=== PATIENT | male | born 1990 | race Caucasian/White ===

== ENCOUNTER 2017-11-19 11:19 | Emergency (ER) | payer OTHER ==
[2017-11-19] MEDS ORDERED: KETOROLAC TROMETHAMINE 60 MG/2 ML SDV IV ONE (14:44)
--- NOTE | 2017-11-19 14:56 | ER Document Report ---
ED Neck/Back Problem - General Chief Complaint: Back Pain Stated Complaint: BACK PAIN Time Seen by Provider: 11/19/17 14:24 Mode of Arrival: Ambulatory Information source: Patient TRAVEL OUTSIDE OF THE [place] IN LAST 30 DAYS: No - HPI Patient complains to provider of: Pain, Upper back, Lower back Onset: Other - 4-5 days Timing: Constant Quality of pain: Achy Severity: Moderate Recent injury: No Notes: Patient arrives with multiple complaints. The patient has a history of chronic back pain and has a spinal stimulator in place. States that it is currently turned off due to fractured wires. He states that for the last 4-5 days he has had pain in his upper back that radiates around to the left lower abdomen and down into the left groin. He complains of left testicular pain as well. He states that the testicle is somewhat sore to the touch. He denies any swelling or redness or rash in this area. He denies any dysuria or hematuria. He denies any penile discharge. He denies any nausea vomiting. He states that he has had some diarrhea for the last few days and reports that he had some bright red blood on the toilet paper with his last bowel movement. He denies any active rectal bleeding currently. He is not on any blood thinning medications. He denies any injuries. He denies any bowel or bladder dysfunction. He denies any unilateral numbness tingling or weakness. He denies fevers. No chest pain or shortness of breath. He denies any other complaints at this time. Past Medical History - Social History Smoking Status: Unknown if Ever Smoked Family History: Reviewed & Not Pertinent - Immunizations Hx Diphtheria, Pertussis, Tetanus Vaccination: Yes Review of Systems - Review of Systems -: Yes All other systems reviewed and negative Physical Exam - Notes Notes: GENERAL: alert, cooperative, nontoxic, no distress. HEAD: normocephalic, atraumatic EYES: conjunctiva pink without discharge, no external redness or swelling. EARS: no external swelling, no external redness NOSE: atraumatic, no external swelling MOUTH/THROAT: mucous membranes moist and pink, posterior pharynx without erythema, swelling, exudate. No trismus or drooling. NECK: soft, supple, full range of motion, no meningismus. CHEST: no distress, lungs clear and equal throughout. No wheezing, rales, rhonchi. CARDIAC: regular rate and rhythm, no murmur, normal capillary refill, normal pulses. No peripheral edema noted. ABDOMEN: soft, tenderness to palpation of the left lower quadrant with no rebound tenderness or guarding. No mass. No pulsatile mass. BACK: No CVA tenderness. Tenderness along the left paraspinal muscles. No rash. No midline tenderness step-offs or crepitus. EXTREMITIES: full range of motion of all extremities. No redness, no swelling. NEURO: alert and oriented A&O x 3, no focal deficits, full range of motion of all extremities. 5 out of 5 flexion and extension of the lower extremities bilaterally. Patellar and Achilles deep tendon reflexes are +2 bilaterally. Normal sensation with no saddle anesthesia. Patient can dorsiflex the great toes bilaterally. PYSCH: appropriate mood, affect. Patient is cooperative. SKIN: pink, warm, dry, no rash. RECTAL: No external lesions, normal rectal tone. No gross blood noted. No tenderness. Prostate unremarkable. : Circumcised penis with no penile discharge. No rashes. Left testicle with mild tenderness to palpation. No redness, swelling, crepitus to the scrotum. No masses within the testicle. Epididymis is unremarkable. No palpable hernia. Right testicle is normal. Course - Re-evaluation Re-evalutation: 11/19/17 17:52 Patient is nontoxic appearing with stable vitals. The patient arrives with left back pain radiating into the left abdomen and down the left testicle. Testicular exam is unremarkable. No sign of torsion or Rabia's gangrene. CT of the abdomen and pelvis shows no acute abnormalities. His lab work is unremarkable aside from a slightly elevated lipase of 400. He has no upper abdominal tenderness and no signs of pancreatitis on his CT. Urinalysis shows no signs of infection. GC chlamydia cultures are currently pending. He has no penile discharge. He was treated with Rocephin and Zithromax in the emergency department. Patient had an ultrasound of the scrotum which showed 3 nodules within the left testicle concerning for possible metastatic disease. The patient was informed of these results and was instructed to follow-up with the urologist at the next available appointment for further evaluation. Patient verbalized understanding of his findings. Patient has no sign of cauda equina, epidural abscess/bleed. He has no saddle anesthesia, no bowel or bladder dysfunction with a nonfocal neurological exam. The patient is noted to have elevated blood pressure during today's emergency department visit. The patient was informed of this finding. The patient was instructed that this may be related to pre-hypertension and requires further evaluation with a primary care provider. The patient has no hypertensive symptoms at this time. The patient's emergency department workup and current diagnosis were explained to the patient and or family. Follow-up instructions were provided. Medications if prescribed were discussed. Instructions for when to return to the emergency department including specific worrisome symptoms were discussed with the patient and/or family. - Laboratory Result Diagrams: 11/19/17 15:12 11/19/17 15:12 Laboratory results interpreted by me: 11/19/17 11/19/17 15:12 15:12 WBC 10.8 H Eosinophils % 6.2 H Absolute Eosinophils 0.7 H Calcium 10.3 H Lipase 413.5 H - Diagnostic Test Radiology reviewed: Image reviewed, Reports reviewed - CT abdomen pelvis without acute findings. Scrotal ultrasound showing 3 nodular lesions within the left testicle concerning for metastatic disease. Discharge - Discharge Clinical Impression: Testicular mass Abdominal pain Qualifiers: Abdominal location: left lower quadrant Qualified Code(s): R10.32 - Left lower quadrant pain Condition: Stable Disposition: HOME, SELF-CARE Instructions: Low Back Pain ([facility]), Abdominal Pain ([facility]), Testicular Pain ([facility]) Additional Instructions: Follow-up with urology at the next available appointment. Follow-up sooner for increasing pain, fever, persistent vomiting, or for any further concerns. Your blood pressure was elevated during today's visit. Have this rechecked with your doctor. Forms: Elevated Blood Pressure, Smoking Cessation Education Referrals: RAINA SAUNDERS MD [ACTIVE STAFF] - Follow up as needed FOREST MARY MD [MACHINE SHORTHAND TEACHER] - Follow up as needed PHYLICIA MOORE MD [EMERITUS] - Follow up as needed ZACHARY WELLS MD [NO LOCAL MD] - Follow up as needed AMADA LANGSTON MD [MACHINE SHORTHAND TEACHER] - Follow up as needed TJ BOSTON DO [ASSOCIATE] - Follow up as needed JEANINE RAMIREZ MD [NO LOCAL MD] - Follow up as needed
[2017-11-19 15:27] LABS: APPEARANCE,URINE CLOUDY; BILIRUBIN,URINE NEGATIVE (NEGATIVE); COLOR,URINE YELLOW; GLUCOSE, URINE NEGATIVE (NEGATIVE); KETONES,URINE NEGATIVE (NEGATIVE); LEUKOCYTE ESTERASE,URINE NEGATIVE (NEGATIVE); NITRITE,URINE NEGATIVE (NEGATIVE); PROTEIN,URINE NEGATIVE (NEGATIVE); URINE SPECIFIC GRAVITY 1.016; UROBILINOGEN,URINE NEGATIVE mg/dL (<2.0)
[2017-11-19 15:35] LABS: ABSOLUTE BASOPHILS # (AUTO) 0.1 10^3/uL (0.0-0.2); ABSOLUTE EOSINOPHILS # (AUTO) 0.7 10^3/uL (0.0-0.6); ABSOLUTE LYMPHOCYTES (AUTO) 2.9 10^3/uL (0.5-4.7); ABSOLUTE MONOCYTES (AUTO) 0.9 10^3/uL (0.1-1.4); ABSOLUTE NEUT (AUTO) 6.3 10^3/uL (1.7-8.2); BASOPHILS % (AUTO) 0.9 % (0-2); EOSINOPHILS % (AUTO) 6.2 % (0-6); HEMATOCRIT 45.5 % (37.9-51.0); HEMOGLOBIN 15.5 g/dL (13.5-17.0); LYMPHOCYTES % (AUTO) 26.3 % (13-45); MEAN CORPUSCULAR HEMOGLOBIN 29.5 pg (27.0-33.4); MEAN CORPUSCULAR VOLUME 87 fl (80-97); MONOCYTES % (AUTO) 8.7 % (3-13); PLATELET COUNT 255 10^3/uL (150-450); RED BLOOD COUNT 5.24 10^6/uL (4.35-5.55); RED CELL DISTRIBUTION WIDTH 13.3 % (11.5-14.0); SEGMENTED NEUTROPHILS % (AUTO) 57.9 % (42-78); TOTAL CELLS COUNTED % (AUTO) 100 %; WHITE BLOOD COUNT 10.8 10^3/uL (4.0-10.5)
[2017-11-19 15:45] LABS: ALANINE AMINOTRANSFERASE 27 U/L (21-72); ALBUMIN 4.4 g/dL (3.5-5.0); ALKALINE PHOSPHATASE 66 U/L (38-126); ANION GAP 11 (5-19); ASPARTATE AMINO TRANSFERASE 17 U/L (17-59); BILIRUBIN,DIRECT 0.2 mg/dL (0.0-0.4); BILIRUBIN,TOTAL 0.3 mg/dL (0.2-1.3); BLOOD UREA NITROGEN 9 mg/dL (7-20); CALCIUM 10.3 mg/dL (8.4-10.2); CARBON DIOXIDE 27 mmol/L (22-30); CHLORIDE 104 mmol/L (98-107); GLUCOSE 104 mg/dL (75-110); LIPASE 413.5 U/L (23-300); POTASSIUM 3.8 mmol/L (3.6-5.0); SODIUM 141.7 mmol/L (137-145); TOTAL PROTEIN 6.7 g/dL (6.3-8.2)
--- NOTE | 2017-11-19 16:32 | RADIOLOGY REPORT (SQ) ---
EXAM DESCRIPTION: CT ABD/PELVIS WITH IV ONLY COMPLETED DATE/TIME: 11/19/2017 4:07 pm REASON FOR STUDY: left back/abdo pain, blood in stool COMPARISON: None. TECHNIQUE: CT scan of the abdomen and pelvis performed using helical scanning technique with dynamic intravenous contrast injection. No oral contrast. Images reviewed with lung, soft tissue, and bone windows. Reconstructed coronal and sagittal MPR imag es reviewed. Delayed images for evaluation of the urinary system also acquired. All images stored on PACS. All CT scanners at this facility use dose modulation, iterative reconstruction, and/or weight based d osing when appropriate to reduce radiation dose to as low as reasonably achievable (ALARA). [facility]: Dose Right [facility]: CareDose [facility]: Dose Right [facility]: Teradose 4D [facility]: [employer] CONTRAST TYPE AND DOSE: contrast/concentration: Isovue 370.00 mg/ml; Total Contrast Delivered: 83.0 ml; Total Saline Delivered: 48.0 ml RENAL FUNCTION: None required. The patient is less than 50 years old. RADIATION DOSE: CT Rad equipment meets quality standard of care and radiation dose reduction techniq ues were employed. CTDIvol: 5.5 - 7.5 mGy. DLP: 747 mGy-cm.. LIMITATIONS: No oral contrast FINDINGS: LOWER CHEST: No significant findings. No nodules or infiltrates. LIVER: Normal size. No masses. No dilated ducts. SPLEEN: Normal size. No focal lesions. PANCREAS: No masses. No significant calcifications. No adjacent inflammation or peripancreatic fluid collections. Pancreatic duct not dilated. GALLBLADDER: No identified stones by CT criteria. No inflammatory changes to suggest cholecystitis. ADRENAL GLANDS: No significant masses or asymmetry. RIGHT KIDNEY AND URETER: No solid masses. No significant calcifications. No hydronephrosis or hyd roureter. LEFT KIDNEY AND URETER: No solid masses. No significant calcifications. No hydronephrosis or hydr oureter. AORTA AND VESSELS: No aneurysm. No dissection. Renal arteries, SMA, celiac without stenosis. RETROPERITONEUM: No retroperitoneal adenopathy, hemorrhage or masses. BOWEL AND PERITONEAL CAVITY: No masses or inflammatory changes. No free fluid or peritoneal masses. APPENDIX: Normal. PELVIS: No mass. No free fluid. Normal bladder. ABDOMINAL WALL: No masses. No hernias. BONES: No significant or acute findings. OTHER: There is a dorsal column stimulator, with a battery pack over the left gluteal region, and brittny ctrodes in the lower thoracic spinal canal. IMPRESSION: NO SIGNIFICANT OR ACUTE FINDING IN THE ABDOMEN OR PELVIS ON CT SCAN WITH IV CONTRAST. TECHNICAL DOCUMENTATION: JOB ID: [id number] Quality ID # [id number]: Final reports with documentation of one or more dose reduction techniques (e.g., Au tomated exposure control, adjustment of the mA and/or kV according to patient size, use of iterative reconstruction technique) 2010 [employer]- All Rights Reserved
[2017-11-19] MEDS ORDERED: LIDOCAINE 1% INJ-PF (10 MG/ML) 30 ML SDV INJ ONE (16:41)
[2017-11-19] MEDS ORDERED: CEFTRIAXONE INJ 250 MG VIAL IM ONE (16:41)
[2017-11-19] MEDS ORDERED: DOXYCYCLINE HYCLATE 100 MG TABLET PO ONE (16:41)
--- NOTE | 2017-11-19 17:25 | RADIOLOGY REPORT (SQ) ---
EXAM DESCRIPTION: U/S SCROTUM W/DOPPLER COMPLETED DATE/TIME: 11/19/2017 5:13 pm REASON FOR STUDY: left testicle pain COMPARISON: None. TECHNIQUE: Static and realtime galindo scale imaging of the scrotum and testes. Selected color Doppler and spectral images recorded to document blood flow. LIMITATIONS: None. FINDINGS: RIGHT: TESTICLE: Normal size. Minimal microlithiasis. Normal blood flow. No mass. EPIDIDYMIS: Normal. HYDROCELE OR VARICOCELE: No. HERNIA OR EXTRA-TESTICULAR MASS: No. OTHER: No other significant finding. LEFT: TESTICLE: There are multiple parenchymal solid nodules with internal vascularity, 1.6 cm, 1.0 cm, an d 0.6 cm diameter respectively. Scattered microlithiasis. No evidence for torsion. EPIDIDYMIS: Normal. HYDROCELE OR VARICOCELE: No. HERNIA OR EXTRA-TESTICULAR MASS: No. OTHER: No other significant finding. IMPRESSION: Abnormal left testicle with multiple parenchymal solid nodules concerning for neoplastic process. Urology consultation is recommended. TECHNICAL DOCUMENTATION: JOB ID: [id number] [place]-72 2010 [employer]- All Rights Reserved
[2017-11-19] MEDS ORDERED: AZITHROMYCIN 250 MG TABLET PO ONE (17:48)
[2017-11-19 17:57] LABS: CHLAM PCR NOT DETECTED (NOT DETECT); GON PCR NOT DETECTED (NOT DETECT)
[2017-11-19 18:20] VITALS: BP 128/79
== END 2017-11-19 18:18 | disposition home or self-care (01) ==
LOC: ER 11:19
DX: N50.89 Other specified disorders of the male genital organs (principal); R10.32 Left lower quadrant pain; M54.89 Other dorsalgia; G89.29 Other chronic pain; N50.812 Left testicular pain; R19.7 Diarrhea, unspecified; R74.8 Abnormal levels of other serum enzymes; R03.0 Elevated blood-pressure reading, without diagnosis of hypertension
CPT/HCPCS: 99284; 96372; 96374; 36415; 83690; 85025; 82272; 80053; 81001; 87491; 87591; 76870; 93976; 74177; J1885; J3490; J0696

== ENCOUNTER → 2018-05-20 | Outpatient (CLI) | payer OTHER ==
--- NOTE | 2018-05-20 08:59 | RADIOLOGY REPORT (SQ) ---
EXAM DESCRIPTION: CT CHEST WITHOUT COMPLETED DATE/TIME: 05/20/2018 8:30 am REASON FOR STUDY: MALIGNANT (PRIMARY) NEOPLASM, UNSPECIFIED C80.1 MALIGNANT (PRIMARY) NEOPLASM, UNS PECIFIED COMPARISON: None. TECHNIQUE: CT scan performed of the chest without intravenous contrast. Images reviewed with lung, soft tissue and bone windows. Reconstructed coronal and sagittal MPR images reviewed. All images st ored on PACS. All CT scanners at this facility use dose modulation, iterative reconstruction, and/or weight based d osing when appropriate to reduce radiation dose to as low as reasonably achievable (ALARA). [facility]: Dose Right [facility]: CareDose [facility]: Dose Right [facility]: Teradose 4D [facility]: [employer] RADIATION DOSE: mGy. LIMITATIONS: No technical limitations. FINDINGS: LUNGS AND PLEURA: No infiltratee or pneumothorax. No pleural effusions or pleural calcifi cations. A small ovoid pulmonary nodule is identified in the right mid lung field anteriorly best se en on image number 66 measuring 6.3 mm in greatest diameter. While this may only represent benign pr ocess, the possibility of metastatic disease cannot be excluded. No other pulmonary nodules are iden tified. HILAR AND MEDIASTINAL STRUCTURES: No identified masses or abnormal nodes. No obvious aneurysm. HEART AND VASCULAR STRUCTURES: No aneurysm. No pericardial effusion. UPPER ABDOMEN: See results under abdominal CT scan THYROID AND OTHER SOFT TISSUES: No masses. No adenopathy. BONES: No significant finding. HARDWARE: Electrodes are identified in vertebral column. OTHER: No other significant findings. IMPRESSION: Solitary small pulmonary nodule as noted above. While this may only represent a benign process, the possibility of metastatic disease cannot be excluded. No other significant intrathoraci c abnormalities were identified. Other findings as noted above TECHNICAL DOCUMENTATION: JOB ID: [id number] Quality ID # 436: Final reports with documentation of one or more dose reduction techniques (e.g., Au tomated exposure control, adjustment of the mA and/or kV according to patient size, use of iterative reconstruction technique) 2010 [employer]- All Rights Reserved Reading location - IP/workstation name: [email or web address]
--- NOTE | 2018-05-20 09:08 | RADIOLOGY REPORT (SQ) ---
EXAM DESCRIPTION: CT ABD/PELVIS NO ORAL OR IV COMPLETED DATE/TIME: 05/20/2018 8:30 am REASON FOR STUDY: MALIGNANT (PRIMARY) NEOPLASM, UNSPECIFIED C80.1 MALIGNANT (PRIMARY) NEOPLASM, UNS PECIFIED COMPARISON: 11/19/2017 TECHNIQUE: CT scan of the abdomen and pelvis performed without intravenous or oral contrast. Images reviewed with lung, soft tissue, and bone windows. Reconstructed coronal and sagittal MPR images revi ewed. All images stored on PACS. All CT scanners at this facility use dose modulation, iterative reconstruction, and/or weight based d osing when appropriate to reduce radiation dose to as low as reasonably achievable (ALARA). [facility]: Dose Right [facility]: CareDose [facility]: Dose Right [facility]: Teradose 4D [facility]: [employer] RADIATION DOSE: CT Rad equipment meets quality standard of care and radiation dose reduction techniq ues were employed. CTDIvol: 5.0 - 5.6 mGy. DLP: 507 mGy-cm.mGy. LIMITATIONS: None. FINDINGS: LOWER CHEST: See results under chest CT scan NON-CONTRASTED LIVER, SPLEEN, ADRENALS: Evaluation limited by lack of IV contrast. No identified sign ificant masses. PANCREAS: No masses. No peripancreatic inflammatory changes. GALLBLADDER: No identified stones by CT criteria. No inflammatory changes to suggest cholecystitis. RIGHT KIDNEY AND URETER: No suspicious masses. Assessment limited by lack of IV contrast. No signif icant calcifications. No hydronephrosis or hydroureter. LEFT KIDNEY AND URETER: No suspicious masses. Assessment limited by lack of IV contrast. No signifi cant calcifications. No hydronephrosis or hydroureter. AORTA AND RETROPERITONEUM: No aneurysm. No retroperitoneal masses or adenopathy. BOWEL AND PERITONEAL CAVITY: No obvious masses or inflammatory changes. No free fluid. APPENDIX: Normal. PELVIS, BLADDER, AND ABDOMINAL WALL:No abnormal masses. No free fluid. Bladder normal. BONES: Sclerotic densities are identified in the proximal right hip unchanged from the previous study . OTHER: Battery pack and electrodes related to a dorsal column stimulator are again identified IMPRESSION: No evidence for intra-abdominal or pelvic metastatic disease. Other findings as noted a devante COMMENT: Quality ID # 436: Final reports with documentation of one or more dose reduction techniques (e.g., Automated exposure control, adjustment of the mA and/or kV according to patient size, use of iterative reconstruction technique) TECHNICAL DOCUMENTATION: JOB ID: [id number] [employer]- All Rights Reserved Reading location - IP/workstation name: [facility]
== END ==
LOC: RAD 08:12
PROVIDERS: ATTEND Internal Medicine Medical Oncology
DX: C80.1 Malignant (primary) neoplasm, unspecified (principal); R91.1 Solitary pulmonary nodule
CPT/HCPCS: 71250; 74176

== ENCOUNTER → 2018-06-21 | Outpatient (CLI) | payer OTHER ==
--- NOTE | 2018-06-22 09:02 | RADIOLOGY REPORT (SQ) ---
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 RADIONUCLIDE AND DOSE: 9.9 mCi F18 FDG The route of agent administration: Intravenous FASTING BLOOD SUGAR: 89 mg/dl CONTRAST TYPE AND DOSE: No CT contrast given. TECHNIQUE: Blood glucose level was verified. Above dose of FDG was injected intravenously. 2-D seg mented attenuation correction images were obtained from the base of the skull to the midthighs. Nonc ontrast CT images were obtained for attenuation correction and fusion with emission images. CT image s were performed without oral or intravenous contrast and are not sensitive for parenchymal lesions. A series of overlapping emission PET images were obtained. Images reviewed and manipulated at [facility] work station by the radiologist. Images stored on PACS. LIMITATIONS: None. FINDINGS: HEAD AND NECK: No areas of abnormal metabolic activity in the soft tissues of the head and neck. CHEST: No areas of abnormal metabolic activity in the chest. ABDOMEN AND PELVIS: No areas of abnormal metabolic activity in the abdomen or pelvis. Expected physi ologic activity is present in the genitourinary system and bowel. PROXIMAL LOWER EXTREMITIES: No areas of abnormal metabolic activity in the soft tissues of the lower extremities. BONES: No abnormal metabolic activity in the visualized skeleton. ADDITIONAL CT FINDINGS: 6 mm nodule in the middle lobe is unchanged from chest CT 05/20/2018. [address] eural-based nodule image 57 is unchanged. OTHER: No other significant findings. IMPRESSION: Non hypermetabolic less than 10 mm pulmonary nodules. False negatives can occur with le sions less than 10 mm. Serial followup is recommended. TECHNICAL DOCUMENTATION: JOB ID: [id number] [employer]- All Rights Reserved Reading location - IP/workstation name: [email or web address]
== END ==
LOC: RAD 14:58
PROVIDERS: ATTEND Internal Medicine Medical Oncology
DX: C62.92 Malignant neoplasm of left testis, unspecified whether descended or undescended (principal)
CPT/HCPCS: 78815; A9552

== ENCOUNTER → 2019-09-22 | Outpatient (CLI) | payer OTHER ==
--- NOTE | 2019-09-22 12:29 | RADIOLOGY REPORT (SQ) ---
EXAM DESCRIPTION: CHEST 2 VIEWS COMPLETED DATE/TIME: 09/22/2019 9:28 am REASON FOR STUDY: C62.12 MALIGNANT NEOPLASM OF DESCENDED LEFT TESTIS COMPARISON: None. EXAM PARAMETERS: NUMBER OF VIEWS: two views TECHNIQUE: Digital Frontal and Lateral radiographic views of the chest acquired. RADIATION DOSE: NA LIMITATIONS: none FINDINGS: LUNGS AND PLEURA: No opacities, masses or pneumothorax. No pleural effusion. MEDIASTINUM AND HILAR STRUCTURES: No masses or contour abnormalities. HEART AND VASCULAR STRUCTURES: Heart normal size. No evidence for failure. BONES: No acute findings. HARDWARE: None in the chest. OTHER: No other significant finding. IMPRESSION: NO ACUTE RADIOGRAPHIC FINDING IN THE CHEST. TECHNICAL DOCUMENTATION: JOB ID: [id number] [employer]- All Rights Reserved Reading location - IP/workstation name: [email or web address]
--- NOTE | 2019-09-22 13:53 | RADIOLOGY REPORT (SQ) ---
EXAM DESCRIPTION: CT ABD/PELVIS WITH IV ONLY COMPLETED DATE/TIME: 09/22/2019 9:12 am REASON FOR STUDY: C62.12 MALIGNANT NEOPLASM OF DESCENDED LEFT TESTIS C62.12 MALIGNANT NEOPLASM OF D ESCENDED LEFT TESTIS COMPARISON: None. TECHNIQUE: CT scan of the abdomen and pelvis performed using helical scanning technique with dynamic intravenous contrast injection. No oral contrast. Images reviewed with lung, soft tissue, and bone windows. Reconstructed coronal and sagittal MPR images reviewed. Delayed images for evaluation of the urinary system also acquired. All images stored on PACS. All CT scanners at this facility use dose modulation, iterative reconstruction, and/or weight based d osing when appropriate to reduce radiation dose to as low as reasonably achievable (ALARA). [facility]: Dose Right [facility]: CareDose [facility]: Dose Right [facility]: Teradose 4D [facility]: [employer] CONTRAST TYPE AND DOSE: Contrast/concentration: Isovue 350.00 mg/ml; Total Contrast Delivered: 88.0 ml; Total Saline Delivered: 70.0 ml RENAL FUNCTION: GFR > 60. RADIATION DOSE: CT Rad equipment meets quality standard of care and radiation dose reduction techniq ues were employed. CTDIvol: 4.8 - 4.8 mGy. DLP: 533 mGy-cm.. LIMITATIONS: None. FINDINGS: LOWER CHEST: No basilar consolidation, pleural effusion, cardiomegaly or pericardial effus ion. LIVER: The morphology of the liver is non cirrhotic. The portal veins are patent. There is no hepat ic mass. SPLEEN: No splenomegaly or splenic lesion. PANCREAS: No abnormality of the pancreas. GALLBLADDER: No abnormality that is apparent on CT. ADRENAL GLANDS: No mass or asymmetry. RIGHT KIDNEY AND URETER: No solid masses. No calcifications. No hydronephrosis or hydroureter. LEFT KIDNEY AND URETER: No solid masses. No calcifications. No hydronephrosis or hydroureter. AORTA AND VESSELS: No aneurysm or dissection of the abdominal aorta. RETROPERITONEUM: No retroperitoneal adenopathy, hemorrhage or mass. BOWEL AND PERITONEAL CAVITY: No bowel obstruction, bowel wall thickening, or pericolonic/ perienteric inflammation. No mesenteric adenopathy, free intraperitoneal fluid, or mesenteric/ peritoneal mass. APPENDIX: Unable to identify the appendix. PELVIS: The prostate gland is normal in size. The urinary bladder is partially distended. There is no adenopathy, free fluid or mass. ABDOMINAL WALL: No masses or hernia. BONES: Stable sclerotic lesion in the proximal right femur. There is no fracture. OTHER: No other finding. IMPRESSION: No acute intra-abdominal abnormality and no pelvic or abdominal metastasis. TECHNICAL DOCUMENTATION: JOB ID: [id number] Quality ID # [id number]: Final reports with documentation of one or more dose reduction techniques (e.g., Au tomated exposure control, adjustment of the mA and/or kV according to patient size, use of iterative reconstruction technique) 2010 [employer]- All Rights Reserved Reading location - IP/workstation name: [facility]-
== END ==
LOC: RAD 08:47
PROVIDERS: ATTEND Internal Medicine Hematology & Oncology
DX: C62.12 Malignant neoplasm of descended left testis (principal)
CPT/HCPCS: 71046; 74177

== ENCOUNTER → 2020-09-12 | Outpatient (CLI) | payer OTHER ==
--- NOTE | 2020-09-13 10:19 | RADIOLOGY REPORT (SQ) ---
EXAM DESCRIPTION: CHEST 2 VIEWS IMAGES COMPLETED DATE/TIME: 09/12/2020 3:25 pm REASON FOR STUDY: (C62.12)MALIGNANT NEOPLASM OF DESCENDED LEFT TESTIS COMPARISON: 09/22/2019 EXAM PARAMETERS: NUMBER OF VIEWS: two views TECHNIQUE: Digital Frontal and Lateral radiographic views of the chest acquired. RADIATION DOSE: NA LIMITATIONS: none FINDINGS: LUNGS AND PLEURA: No opacities, masses or pneumothorax. No pleural effusion. MEDIASTINUM AND HILAR STRUCTURES: No masses or contour abnormalities. HEART AND VASCULAR STRUCTURES: Heart normal size. No evidence for failure. BONES: No acute findings. HARDWARE: None in the chest. OTHER: No other significant finding. IMPRESSION: NO ACUTE RADIOGRAPHIC FINDING IN THE CHEST. TECHNICAL DOCUMENTATION: JOB ID: [id number] 2010 [email or web address]- All Rights Reserved Reading location - IP/workstation name: [email or web address]
== END ==
LOC: RAD 14:49
PROVIDERS: ATTEND Internal Medicine Hematology & Oncology
DX: C62.12 Malignant neoplasm of descended left testis (principal)
CPT/HCPCS: 71046